=== PATIENT | female | born 1995 | race Caucasian/White ===

== ENCOUNTER 2024-03-05 18:37 | Emergency (ER) | payer OTHER ==
[~2024-03-05] VITALS: Ht 167.6 cm; Wt 94.8 kg
[2024-03-05 18:53] VITALS: BP 135/82; PULSE 74; RESP 18; TEMP 96.9; O2SAT 100
[2024-03-05 20:20] LABS: APPEARANCE,URINE CLEAR (CLEAR); BILIRUBIN,URINE NEGATIVE (NEGATIVE); BLOOD, URINE 3+ (NEGATIVE); COLOR,URINE YELLOW (YELLOW); LEUKOCYTE ESTERASE ,URINE NEGATIVE (NEGATIVE); NITRITE, URINE NEGATIVE (NEGATIVE); PROTEIN,URINE TRACE (NEGATIVE); UGLUCOSE NEGATIVE (NEGATIVE)
[2024-03-05 20:35] LABS: BACTERIA,URINE FEW /HPF (None Seen); SQUAMOUS EPITHELIAL CELL,UR 4-10 (MOD) /LPF (0-3 (FEW)); WBC,URINE 0-5 /HPF (0-5)
[2024-03-05 20:36] LABS: MUCUS,URINE 1+ /LPF (None Seen); TRICHOMONAS,URINE None Seen /HPF (None Seen); WHITE BLOOD CELL CASTS,URINE None Seen /LPF (None Seen); YEAST,URINE None Seen /HPF (None Seen)
[2024-03-08] MEDS ORDERED: NITR100C7 PO (13:52)
== END 2024-03-05 20:23 | disposition home or self-care (01) ==
LOC: MED 18:37
DX: Z11.3 Encounter for screening for infections with a predominantly sexual mode of transmission (principal); L29.2 Pruritus vulvae
CPT/HCPCS: 81001; 81025; 87491; 99283

== ENCOUNTER 2024-04-07 13:24 | Emergency (ER) | payer OTHER ==
[~2024-04-07] VITALS: Ht 167.6 cm; Wt 90.7 kg
[~2024-04-07 13:24] MED LIST: NITR100C7 PO
[2024-04-07 13:46] VITALS: BP 135/77; PULSE 59; RESP 18; TEMP 97.3; O2SAT 97
[2024-04-07 14:06] LABS: APPEARANCE,URINE SL CLOUDY (CLEAR); BILIRUBIN,URINE NEGATIVE (NEGATIVE); BLOOD, URINE NEGATIVE (NEGATIVE); COLOR,URINE YELLOW (YELLOW); LEUKOCYTE ESTERASE ,URINE NEGATIVE (NEGATIVE); NITRITE, URINE NEGATIVE (NEGATIVE); PROTEIN,URINE NEGATIVE (NEGATIVE); UGLUCOSE NEGATIVE (NEGATIVE)
[2024-04-07] MEDS ORDERED: cefTRIAXone 500 MG VIAL ONE (14:47)
[2024-04-07] MEDS ORDERED: LIDOCAINE MPF 1% 5 ML ONE (14:47)
[2024-04-07] MEDS: cefTRIAXone 500 MG in LIDOCAINE MPF 1% 1 ML IM ONE (14:52)
[2024-04-07 14:54] VITALS: O2SAT 97
[2024-04-07] MEDS ORDERED: METR-520 PO (15:04)
[2024-04-07] MEDS ORDERED: DOXY-690 PO (15:04)
== END 2024-04-07 15:22 | disposition home or self-care (01) ==
LOC: MED 13:24
DX: N76.0 Acute vaginitis (principal); Z79.899 Other long term (current) drug therapy; Z88.6 Allergy status to analgesic agent
CPT/HCPCS: 81003; 81025; 87110; 87210; 87299; 96372; 99284; J0696; J2003; 99283